=== PATIENT | male | born 1995 | race Caucasian/White ===

== ENCOUNTER 2018-06-01 13:21 | Emergency (ER) | payer OTHER ==
[~2018-06-01] VITALS: Ht 175.3 cm; Wt 74.8 kg
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
[2018-06-01 13:55] VITALS: BP 129/84
[2018-06-01] MEDS: TORADOL IM ONE (14:00)
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
[2018-06-01] MEDS ORDERED: TORADOL ONE (14:09)
[2018-06-01 14:19] VITALS: BP 129/84
== END 2018-06-01 14:09 | disposition home or self-care (01) ==
LOC: ER 13:21 → EDBD 13:21 → ER 14:09
DX: S30.0XXA Contusion of lower back and pelvis, initial encounter (principal); S40.019A Contusion of unspecified shoulder, initial encounter; S90.00XA Contusion of unspecified ankle, initial encounter; J45.909 Unspecified asthma, uncomplicated; Z88.0 Allergy status to penicillin; Z88.2 Allergy status to sulfonamides; Z88.8 Allergy status to other drugs, medicaments and biological substances; V58.0XXA Driver of pick-up truck or van injured in noncollision transport accident in nontraffic accident, initial encounter; Y93.89 Activity, other specified; Y92.488 Other paved roadways as the place of occurrence of the external cause; Y99.8 Other external cause status
CPT/HCPCS: 96372; 99283; J1885